=== PATIENT | female | born 1990 | race Caucasian/White ===

== ENCOUNTER 2018-09-18 11:19 | Emergency (ER) | payer OTHER, MEDICARE ==
[2018-09-18 11:31] VITALS: Ht 170.2 cm
[2018-09-18] MEDS ORDERED: IBUPROFEN800 MG PO (12:22)
[2018-09-18 12:33] VITALS: BP 112/70
== END 2018-09-18 12:42 | disposition home or self-care (01) ==
LOC: D.ER 11:19
DX: S63.502A Unspecified sprain of left wrist, initial encounter (principal); W11.XXXA Fall on and from ladder, initial encounter; Y93.89 Activity, other specified; Y92.019 Unspecified place in single-family (private) house as the place of occurrence of the external cause